=== PATIENT | female | born 1965 | race Caucasian/White ===

== ENCOUNTER 2022-09-18 09:09 | Emergency (ER) | payer OTHER ==
[2022-09-18 09:21] VITALS: BP 162/81; PULSE 75; RESP 18; TEMP 98.5
[2022-09-18] MEDS ORDERED: ONDANSETRON *ODT* 4 MG TABLET SL ONE (09:42)
[2022-09-18] MEDS ORDERED: ONDANSETRON *ODT* 4 MG TABLET ONE (09:57)
== END 2022-09-18 11:27 | disposition home or self-care (01) ==
LOC: JER 09:09
DX: S09.90XA Unspecified injury of head, initial encounter (principal); R51.9 Headache, unspecified; R11.0 Nausea; M25.512 Pain in left shoulder; W01.0XXA Fall on same level from slipping, tripping and stumbling without subsequent striking against object, initial encounter; Y93.01 Activity, walking, marching and hiking
CPT/HCPCS: 70450-TC; 73030-TC-LT-FY; 99284-25; Q0162